=== PATIENT | male | born 1965 | race Caucasian/White ===

== ENCOUNTER 2022-02-07 12:42 | Outpatient (CLI) | payer BC, SELFPAY ==
--- NOTE | ~2022-02-07 | XR_ITS ---
XR shoulder LT min 2V DATE: 02/07/2022 13:14 INDICATION: Polyarthralgia. Left shoulder pain. TECHNIQUE: 4 views COMPARISON: None FINDINGS: No fracture or dislocation, periosteal reaction or bone destruction or abnormal soft tissue calcification. IMPRESSION: No significant abnormality Reviewed, dictated and finalized at location A. IMPRESSION: No significant abnormality
--- NOTE | ~2022-02-07 | XR_ITS ---
XR sacroiliac joints min 3V DATE: 02/07/2022 13:14 INDICATION: Polyarthralgia TECHNIQUE: AP and bilateral oblique views COMPARISON: None FINDINGS: No fracture or dislocation, erosive change or ankylosis at the sacroiliac joints. Prominent degenerative disc disease at L5-S1. Mild asymmetric narrowing of the right hip joint. IMPRESSION: Prominent degenerative disc disease at L5-S1 Right hip osteoarthritis No significant abnormality of the sacroiliac joints Reviewed, dictated and finalized at Location [facility]. Reviewed, dictated and finalized at location A.
--- NOTE | ~2022-02-07 | XR_ITS ---
XR hand RT 2V DATE: 02/07/2022 13:14 INDICATION: Polyarthralgia. Pain. TECHNIQUE: AP and lateral views COMPARISON: None FINDINGS: Probable old boxer's fracture healed deformity, fifth metacarpal. Benign cyst of capitate bone. There is widening of the scapholunate joint. No fracture, dislocation, periosteal reaction or bone destruction, erosive change or chondrocalcinosi s. IMPRESSION: Scapholunate dissociation Probable old healed boxer's fracture of fifth metacarpal Reviewed, dictated and finalized at location A.
--- NOTE | ~2022-02-07 | XR_ITS ---
XR hand LT 2V DATE: 02/07/2022 13:14 INDICATION: Polyarthralgia. Pain. TECHNIQUE: AP and lateral views COMPARISON: None FINDINGS: No fracture or dislocation, periosteal reaction or bone destruction. There is narrowing at some of the interphalangeal joints consistent with mild osteoarthritis. No eros steffi change or chondrocalcinosis. IMPRESSION: Mild osteoarthritis at some interphalangeal joints Reviewed, dictated and finalized at location A.
--- NOTE | ~2022-02-07 | XR_ITS ---
XR chest 2V DATE: 02/07/2022 13:14 INDICATION: Polyarthralgia TECHNIQUE: PA and lateral views COMPARISON: None FINDINGS: Normal heart size. No hilar or mediastinal enlargement. No pulmonary infiltrate or consolid ation, pleural effusion or pulmonary vascular congestion or pneumothorax. Included skeletal structure s are unremarkable. IMPRESSION: Negative Reviewed, dictated and finalized at location A. IMPRESSION: Negative
--- NOTE | ~2022-02-07 | XR_ITS ---
XR knee RT 3V DATE: 02/07/2022 13:13 INDICATION: Polyarthralgia. Right knee pain TECHNIQUE: [place] COMPARISON: None FINDINGS: There is slight periarticular spurring of the patella consistent with mild osteoarthritis. Joint spaces are well preserved. No fracture, dislocation, joint effusion, chondrocalcinosis or radio paque intra-articular loose body. No periosteal reaction or bone destruction. IMPRESSION: Mild patellofemoral osteoarthritis Reviewed, dictated and finalized at location A.
--- NOTE | ~2022-02-07 | XR_ITS ---
XR hip BI wo pelvis DATE: 02/07/2022 13:14 INDICATION: Polyarthralgia TECHNIQUE: AP and lateral views of each hip COMPARISON: None FINDINGS: Prominent degenerative disc disease at L5-S1. The pubic symphysis and sacroiliac joints are normally aligned. There is mild spurring of the left femoral head. There is asymmetric mildly prominent narrowing of th e right hip joint space. IMPRESSION: Bilateral hip osteoarthritis, mild on the left, moderately prominent on the right Degenerative disc disease at L5-S1 Reviewed, dictated and finalized at location A. IMPRESSION: Bilateral hip osteoarthritis, mild on the left, moderately prominen t on the right Degenerative disc disease at L5-S1
--- NOTE | ~2022-02-07 | XR_ITS ---
XR shoulder RT min 2V DATE: 02/07/2022 13:14 INDICATION: Polyarthralgia TECHNIQUE: 4 views COMPARISON: None FINDINGS: There is osteopenia. No fracture or dislocation, periosteal reaction or bone destruction or abnormal soft tissue calcifica tion. IMPRESSION: Osteopenia; otherwise negative Reviewed, dictated and finalized at location A.
--- NOTE | ~2022-02-07 | XR_ITS ---
XR knee LT 3V DATE: 02/07/2022 13:13 INDICATION: Polyarthralgia. Left knee pain. TECHNIQUE: [place], AP and lateral views COMPARISON: None FINDINGS: There is minimal periarticular spurring of the patella consistent with osteoarthritis. Join t spaces appear well preserved. No fracture or dislocation or joint effusion. No periosteal reaction or bone destruction no radiopaqu e intra-articular loose body or chondrocalcinosis. IMPRESSION: Mild patellofemoral osteoarthritis Reviewed, dictated and finalized at location A.
== END 2022-02-07 12:43 | disposition home or self-care (01) ==
LOC: ANHIMG 12:49
PROVIDERS: PCP Nurse Practitioner Family; Visit Provider Physician Assistant
DX: M25.50 Pain in unspecified joint (principal); M51.37 Other intervertebral disc degeneration, lumbosacral region; M85.89 Other specified disorders of bone density and structure, multiple sites; M15.9 Polyosteoarthritis, unspecified
CPT/HCPCS: 71046; 72202; 73030; 73120; 73521; 73562

== ENCOUNTER 2023-01-12 14:57 | Outpatient (CLI) | payer BC, SELFPAY ==
--- NOTE | ~2023-01-12 | DEXA_ITS ---
Bone Density Report Name: DESTINY BAIRD Age: 57 Sex: Male Ethnicity: White Date of : 1965 Indication: prior fracture; Referring Provider: GRABIEL, ALEXANDER Gonzalez Study: Bone densitometry was performed. Exam Date: January 12, 2023 Accession number: [id number] Bone Density: Region BMD T-score Z-score Classification AP Spine(L1-L4) 0.968 -1.1 -0.6 Osteopenia Femoral Neck (Left) 0.765 -1.2 -0.4 Osteopenia Total Hip (Left) 0.917 -0.8 -0.4 Normal Femoral Neck (Right) 0.749 -1.3 -0.5 Osteopenia Total Hip (Right) 0.873 -1.1 -0.7 Osteopenia Total Hip Mean 0.895 -1.0 -0.6 Normal World Health Organization criteria for BMD impression classify patients as: Normal (T-score at or above -1.0), Osteopenia (T-score between -1.0 and -2.5), or Osteoporosis (T-score at or below -2.5). 10-year Fracture Risk(1): Major Osteoporotic Fracture 8.0% Hip Fracture 1.1% Reported Risk Factors: [place] (), Neck BMD=0.749, BMI=36.0, previous fracture, smoking (1) FRAX(R) Version 3.08. Fracture probability calculated for an untreated patient. Fracture probability may be lower if the patient has received treatment. Clinical Information Provided by Patient: Has had a low trauma fracture Smokes Patient maximum height was 72 No regular weight bearing exercise Drinks caffeinated beverages Impression: The patient has low bone mass, based on the Right Femoral Neck T-score. The patient has an estimated ten-year risk of hip fracture of 1.1% and an estimated ten-year risk of major fracture of 8%, based on the WHO FRAX algorithm. The patient has risk factors, including: smoking, previous fracture. Discussion: BONE DENSITY IS LOW AT ONE OR MORE SKELETAL SITES. This patient's lowest T-score is low at one or more skeletal sites. It meets the World Health Organization's (WHO) criteria for ?low bone mass? (T-score between -1.0 and -2.5). The patient's 10-year risk of fracture as calculated by FRAX is less than the threshold where pharmacological therapy is recommended by the National Osteoporosis Foundation (NOF). However, all treatment decisions require clinical judgment and consideration of individual patient factors, including patient preferences, comorbidities, previous drug use, risk factors not captured in the FRAX model (e.g., frailty, falls, vitamin D deficiency, increased bone turnover, interval significant decline in bone density) and possible under or overestimation of fracture risk by FRAX. The patient should follow a healthful lifestyle (good nutrition with adequate calcium and vitamin D, and appropriate weight-bearing exercise). Follow-Up: Consider repeating this study in 2 to 3 years to reassess this patient's status, or sooner if there is some new clinical indication. Reported by: AARON on
== END 2023-01-12 14:58 | disposition home or self-care (01) ==
PROVIDERS: PCP Nurse Practitioner Family; Visit Provider Physician Assistant
DX: M85.88 Other specified disorders of bone density and structure, other site (principal); M85.852 Other specified disorders of bone density and structure, left thigh; M85.851 Other specified disorders of bone density and structure, right thigh; Z79.52 Long term (current) use of systemic steroids
CPT/HCPCS: 77080